=== PATIENT | male | born 1990 | race Caucasian/White ===

== ENCOUNTER → 2017-05-10 | Outpatient (CLI) | payer OTHER ==
[~2017-05-10] MED LIST: BISM262S7 PO
== END | disposition home or self-care (01) ==
LOC: C.PATHSPEC 15:35
PROVIDERS: ATTEND Urology
DX: Z30.2 Encounter for sterilization (principal)

== ENCOUNTER 2017-12-29 14:40 | Emergency (ER) | payer OTHER ==
[~2017-12-29] VITALS: Ht 185.4 cm; Wt 71.4 kg
[2017-12-29 14:51] VITALS: TEMP 36.7; Ht 185.4 cm; Wt 71.4 kg
[2017-12-29] MEDS ORDERED: SERT50TA PO (15:07)
[2017-12-29] MEDS ORDERED: KETOROLAC TROMETHAMINE 30 MG/ML VIAL IV STA (15:09)
--- NOTE | 2017-12-29 15:12 | EMERGENCY ROOM VISIT NOTE ---
ED Visit Note First contact with patient: 14:55 CHIEF COMPLAINT: Left knee pain, swelling, redness HISTORY OF PRESENT ILLNESS: This 27-year-old male patient presents to the emergency department, ambulatory, complaining of 1 week long history of left knee swelling, redness, and pain. The patient denies any injury. He states he noticed the symptoms initially 1 week ago, and they have been worsening throughout the week. 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 He denies any previous injuries to that knee. He does have full extension, but flexion is very painful. He is taken no medications for his symptoms today. The patient denies any other joint pains besides their knee. The patient denies bruising. There is pain anteriorly and radiating around to the posterior aspect. They rate the pain as sharp and 6/10. The patient states they are able to walk on it. No numbness or tingling. No ankle, foot or hip pain. Patient denies any known fever, chills, body aches, nausea, vomiting , headache, abdominal pain, fatigue, paresthesias, or other joint pains. He denies any recent open wounds of the knee. He has been taking 2 ibuprofen every 4 hours for his pain, however has taken nothing today. He denies any drainage from the wound. He denies known history of tick bite. REVIEW OF SYSTEMS: A 6 system review of systems was completed with positives and pertinent negatives listed in the HPI. ALLERGIES: None MEDICATIONS: Zoloft PMH: None SOCIAL HISTORY: Patient lives locally with family. He denies drug, alcohol use. He admits to using chewing tobacco daily. PHYSICAL EXAM: Vital Signs: Reviewed Nurse's notes, vital signs stable. GENERAL : This is a 27-year-old white male, no acute distress, but appears in pain, well -developed, well-nourished. MENTAL STATUS: Alert, oriented to person place and time, and cooperative. MUSCULOSKELETAL: The left knee is swollen and erythematous. There is no ecchymosis. There is a joint effusion present. The patient is tender throughout the entire knee, but worse on the anterior aspect. There is joint line tenderness. The patella does appropriately subluxate. Range of motion is limited in flexion due to pain. Strength of the quads and hamstrings is 5/5. Juan's is negative. Umm's and Anterior Drawer tests are negative. There is no discomfort or laxity with varus and valgus stressing. The foot and toes are warm and well-perfused. Dorsalis pedis pulse 2+. Sensation to pain and light touch is intact. Capillary refill less than 2 seconds. RADIOLOGY: LEFT KNEE 3 VIEWS HISTORY: left knee pain/swelling/redness COMPARISON: None. FINDINGS: There is no fracture or dislocation. Anterior soft tissue swelling. Trace knee effusion. No radiopaque foreign bodies. IMPRESSION: 1. No fractures within the left knee. 2. Anterior soft tissue swelling. 3. Trace knee effusion. Electronically signed by: Micah Shepard M.D. 12/29/2017 3:44 PM Dictated Date/Time: 12/29/2017 3:43 PM EMERGENCY DEPARTMENT COURSE: I examined the patient. He was given 60 mg Toradol IM. X-rays of the right knee were reviewed by myself and read by radiology and reveal no acute fractures, trace knee effusion, anterior soft tissue swelling. IV access obtained, labs drawn. The patient was given 30 mg Toradol IV. Labs showed equivocal IgM antibodies which will reflex to Western blot testing. CBC was without leukocytosis, anemia, thrombocytopenia. Renal and hepatic function and electrolytes were normal. C-reactive protein was elevated at 4.85. I discussed the findings with the patient at bedside. I did offer to perform aspiration of the knee to help relieve pressure and test synovial fluid. The patient was agreeable to this procedure and verbal consent obtained. The knee was placed in a position of partial flexion. The knee was sterilely draped. Betadine was used to scrub the knee. 1 cc of 1% buffered lidocaine was injected superficially just superior and laterally to the patella to form a wheal. An 18-gauge needle was then inserted into the anesthetized area and while gently aspirating was inserted into the knee joint. Approximately 6 cc of bloody synovial fluid was aspirated into a syringe. The syringe was labeled and sent to the lab for testing. Direct pressure was applied to the injection site. The site was bandaged with bacitracin, gauze, and a pressure bandage. The patient was offered crutches and declined. He was provided with his first dose of doxycycline, as I suspect his symptoms are related to Lyme arthritis, here in the emergency department as well as a home pack for the medication. The patient was agreeable with the treatment plan. All questions answered to the patient and his mother satisfaction. Discharge instructions reviewed, the patient was discharged home in good condition. I attest that I have personally reviewed the patient's current medication list. Patient was found to have normal blood pressure on screening and does not require follow-up. Etiologies such as soft tissue injury, fracture, dislocation, neurovascular compromise, compartment syndrome, cellulitis, Lyme disease, gout, bursitis, as well as others were entertained. DIAGNOSIS: Lyme arthritis of left knee, left knee effusion The chart was completed utilizing [employer] voice recognition software. Grammatical errors, random word insertions, pronoun errors, and incomplete sentences are an occasional consequence of this system due to software limitations, ambient noise, and hardware issues. Any formal questions or concerns about the content, text, or information contained within the body of this dictation should be directly addressed to the provider for clarification. Current/Historical Medications Scheduled Doxycycline Hyclate (Vibramycin), 100 MG PO BID Sertraline (Zoloft), 50 MG PO DAILY Allergies Coded Allergies: No Known Allergies (Unverified , 12/29/17) Vital Signs Date Time Temp Pulse Resp B/P (MAP) Pulse Ox O2 Delivery O2 Flow Rate FiO2 12/29/17 17:25 65 16 124/75 95 12/29/17 14:51 36.7 84 20 133/80 99 Room Air Laboratory Results 12/29/17 15:16 Red Blood Count 4.68, Mean Corpuscular Volume 83.1, Mean Corpuscular Hemoglobin 29.9, Mean Corpuscular Hemoglobin Concent 36.0, Mean Platelet Volume 8.8, Neutrophils (%) (Auto) 72.9, Lymphocytes (%) (Auto) 15.2, Monocytes (%) (Auto) 10.5, Eosinophils (%) (Auto) 1.0, Basophils (%) (Auto) 0.3, Neutrophils # (Auto ) 6.82, Lymphocytes # (Auto) 1.42, Monocytes # (Auto) 0.98, Eosinophils # (Auto ) 0.09, Basophils # (Auto) 0.03 12/29/17 15:16 Test 12/29/17 15:16 12/29/17 17:10 White Blood Count 9.35 K/uL (4.8-10.8) Red Blood Count 4.68 M/uL (4.7-6.1) Hemoglobin 14.0 g/dL (14.0-18.0) Hematocrit 38.9 % (42-52) Mean Corpuscular Volume 83.1 fL (80-100) Mean Corpuscular Hemoglobin 29.9 pg (25-34) Mean Corpuscular Hemoglobin Concent 36.0 g/dl (32-36) Platelet Count 267 K/uL (130-400) Mean Platelet Volume 8.8 fL (7.4-10.4) Neutrophils (%) (Auto) 72.9 % Lymphocytes (%) (Auto) 15.2 % Monocytes (%) (Auto) 10.5 % Eosinophils (%) (Auto) 1.0 % Basophils (%) (Auto) 0.3 % Neutrophils # (Auto) 6.82 K/uL (1.4-6.5) Lymphocytes # (Auto) 1.42 K/uL (1.2-3.4) Monocytes # (Auto) 0.98 K/uL (0.11-0.59) Eosinophils # (Auto) 0.09 K/uL (0-0.5) Basophils # (Auto) 0.03 K/uL (0-0.2) RDW Standard Deviation 38.4 fL (36.4-46.3) RDW Coefficient of Variation 12.8 % (11.5-14.5) Immature Granulocyte % (Auto) 0.1 % Immature Granulocyte # (Auto) 0.01 K/uL (0.00-0.02) Anion Gap 5.0 mmol/L (3-11) Est Creatinine Clear Calc Drug Dose 99.2 ml/min Estimated GFR () 102.7 Estimated GFR (Non- 88.6 BUN/Creatinine Ratio 15.2 (10-20) Uric Acid 5.8 mg/dl (2.6-7.2) Calcium Level 8.8 mg/dl (8.5-10.1) Total Bilirubin 0.6 mg/dl (0.2-1) Aspartate Amino Transf (AST/SGOT) 23 U/L (15-37) Alanine Aminotransferase (ALT/SGPT) 25 U/L (12-78) Alkaline Phosphatase 84 U/L (45-117) C-Reactive Protein 4.85 mg/dl (0-0.29) Total Protein 7.3 gm/dl (6.4-8.2) Albumin 3.8 gm/dl (3.4-5.0) Globulin 3.5 gm/dl (2.5-4.0) Albumin/Globulin Ratio 1.1 (0.9-2) Lyme Disease IgG Antibody NEG (NEG) Synovial Fluid Source KNEE Synovial Fluid Color RED Synovial Fluid Appearance BLOODY Synovial Fluid WBC 2055 /uL (0-200) Synovial Fluid RBC 80780 /uL Synovial Fluid Polynuclear WBCs % 91.6 % Synovial Fluid Mononuclear WBCs % 8.4 % Synovial Fluid Uric Acid 5.8 mg/dl Medications Administered Medications (Trade) Dose Ordered Sig/Mira Route Start Time Stop Time Status Last Admin Dose Admin Ketorolac Tromethamine (Toradol Inj) 60 mg NOW STAT IM 12/29/17 15:33 12/29/17 15:35 DC 12/29/17 15:42 60 MG Doxycycline Hyclate (Vibramycin Cap) 100 mg ONE STAT PO 12/29/17 17:15 12/29/17 17:19 DC 12/29/17 17:25 100 MG Departure Information Impression Primary Impression: Lyme arthritis of knee Additional Impression: Knee effusion, left Dispostion Home / Self-Care Condition GOOD Prescriptions Doxycycline Hyclate (VIBRAMYCIN) 100 Mg Cap 100 MG PO BID for 21 Days, #42 CAP Prov: Alexia Moody PA-C 12/29/17 Referrals Pro,Román Ace M.D. (PCP) Jaciel Odom M.D. Patient Instructions ED Effusion Knee, ED Lyme Disease, [facility] Additional Instructions You were seen in the ED today for left knee pain, swelling, and redness. As discussed, I suspect lyme as the cause of your symptoms. Your lyme testing here in the ED today was equivocal, however, clinically, based on your symptoms, I feel that the benefit of early treatment is greater than the risk associated with antibiotic use. You have been prescribed Doxycycline to be taken as prescribed. This is an antibiotic. All antibiotics have the potential to cause diarrhea. Stop this medication and contact a medical provider if you were to develop any significant adverse side effects including: wheezing, shortness of breath, passing out, vomiting, or a diffuse rash. Always take antibiotics as directed and COMPLETE the ENTIRE course regardless of the improvement of your symptoms. Be sure to eat prior to taking this antibiotic. Do not eat or drink milk products immediately before taking this medication. Make sure that the pill is completely swallowed each time. Protect yourself with sunscreen while on this antibiotic as it increases your skin's sensitivity to the light and cause bad sunburns. Ibuprofen(Motrin, Advil) may be used for fever or pain. Use 600mg every six hours as needed. Take with food. Avoid using more than 2400mg in a 24 hour period. Do not use 2400mg per day for more than three consecutive days without physician direction. Prolonged inappropriate use can lead to stomach upset or ulcers. (AND/OR) Acetaminophen(Tylenol) may be used for fever or pain. Use 1000mg every six hours as needed. Avoid using more than 3000mg in a 24 hour period. Keep a pressure bandage over the knee for the next 12 hours. After this time, you may remove the bandage. You may shower and clean the wound with soap and water, however, keep the injection site covered, especially if it may become dirty. Follow-up with your PCP and/or orthopedic surgeon regarding further management and care of your condition. Return immediately to the ED for worsening swelling, redness, purulent drainage , fever, chills, nausea, vomiting, or other concerning symptoms. Problem Qualifiers
[2017-12-29] MEDS ORDERED: KETOROLAC TROMETHAMINE 60 MG/2 ML VIAL IM STA (15:33)
[2017-12-29 15:34] LABS: BASO % 0.3 %; BASO ABS # 0.03 K/uL (0-0.2); EOS ABS # 0.09 K/uL (0-0.5); HEMATOCRIT 38.9 % (42-52); IG# 0.01 K/uL (0.00-0.02); LYMPH % 15.2 %; LYMPH ABS # 1.42 K/uL (1.2-3.4); MEAN CELL VOLUME 83.1 fL (80-100); MEAN CORPUSCULAR HEMOGLOBIN 29.9 pg (25-34); MEAN PLATELET VOLUME 8.8 fL (7.4-10.4); MONO % 10.5 %; MONO ABS # 0.98 K/uL (0.11-0.59); NEUT % 72.9 %; NEUT ABS # 6.82 K/uL (1.4-6.5); PLATELET COUNT 267 K/uL (130-400); RED CELL DISTRIBUTION WIDTH CV 12.8 % (11.5-14.5); RED CELL DISTRIBUTION WIDTH SD 38.4 fL (36.4-46.3); WHITE BLOOD COUNT 9.35 K/uL (4.8-10.8)
--- NOTE | 2017-12-29 15:46 | DIAGNOSTIC IMAGING REPORT ---
LEFT KNEE 3 VIEWS HISTORY: left knee pain/swelling/redness COMPARISON: None. FINDINGS: There is no fracture or dislocation. Anterior soft tissue swelling. Trace knee effusion. No radiopaque foreign bodies. IMPRESSION: 1. No fractures within the left knee. 2. Anterior soft tissue swelling. 3. Trace knee effusion. Electronically signed by: Micah Shepard M.D. 12/29/2017 3:44 PM Dictated Date/Time: 12/29/2017 3:43 PM
[2017-12-29 15:57] LABS: ALBUMIN 3.8 gm/dl (3.4-5.0); CALCIUM 8.8 mg/dl (8.5-10.1); CREATININE 1.13 mg/dl (0.60-1.40); URIC ACID 5.8 mg/dl (2.6-7.2)
[2017-12-29 16:00] LABS: TOTAL PROTEIN 7.3 gm/dl (6.4-8.2)
[2017-12-29] MEDS ORDERED: LIDOCAINE 1% BUFFERED INJ 5 ML VIAL INFIL STA (16:37)
[2017-12-29] MEDS ORDERED: DOXYCYCLINE HYCLATE 100 MG CAP PO STA (17:15)
[2017-12-29] MEDS ORDERED: DOXY100C PO (17:20)
[2017-12-29 17:25] VITALS: BP 124/75; PULSE 65; O2SAT 95
== END 2017-12-29 17:26 | disposition home or self-care (01) ==
LOC: C.EDB 14:41 → C.EDD 17:26
DX: A69.23 Arthritis due to Lyme disease (principal); M25.462 Effusion, left knee; Z79.899 Other long term (current) drug therapy